=== PATIENT | female | born 1980 | race African-American/Black ===

== ENCOUNTER 2021-11-17 18:04 | Emergency (ER) | payer SELFPAY ==
[2021-11-17 18:13] VITALS: BP 125/83; PULSE 88; TEMP 97; BMI 29.2
== END 2021-11-17 22:33 | disposition left against medical advice (07) ==
LOC: JERFT 18:04 → JER 18:04 → JERFT 22:33
DX: R51.9 Headache, unspecified (principal)
CPT/HCPCS: 99281-25